=== PATIENT | female | born 1955 | race African-American/Black ===

== ENCOUNTER 2021-04-14 04:25 | Day surgery (SDC) | payer OTHER ==
[2021-04-08 15:12] VITALS: BMI 37.8
[2021-04-14 08:33] LABS: HEMATOCRIT 26.4 % (32.4-45.2); HEMOGLOBIN 8.6 GM/dL (10.7-15.3); MCH 26.3 pg (25.7-33.7); MCHC 32.8 g/dl (32.0-36.0); MEAN CELL VOLUME 80.3 fl (80-96); MEAN PLT VOLUME 7.8 fl (7.5-11.1); PLATELET COUNT 235 10^3/uL (134-434); RBC 3.28 M/mm3 (3.60-5.2); RDW 20.1 % (11.6-15.6); WHITE BLOOD COUNT 8.4 K/mm3 (4.0-10.0)
[2021-04-14] MEDS ORDERED: METOPROLOL TARTRATE 25 MG TABLET (FP) PO ONE (09:15)
[2021-04-14] MEDS ORDERED: BUPIVACAINE HCL/PF 0.5% (5MG/ML) 10 ML VIAL ONE (09:24)
[2021-04-14] MEDS ORDERED: ONDANSETRON 4 MG/2 ML VIAL IVPUSH PRN (10:34)
[2021-04-14] MEDS ORDERED: oxyCODONE HCL 5 MG TABLET PO PRN (10:34)
[2021-04-14] MEDS ORDERED: LACTATED RINGERS SOLUTION 1,000 ML IV SCH (10:45)
[2021-04-14] MEDS ORDERED: ROCURONIUM BROMIDE 50 MG/5 ML SYRINGE ONE ×2 (10:49)
[2021-04-14] MEDS ORDERED: PROPOFOL 20 ML ONE ×2 (10:49→12:08)
[2021-04-14] MEDS ORDERED: MIDAZOLAM HCL 2 MG/2 ML SINGLE DOSE VIAL ONE (10:50)
[2021-04-14] MEDS ORDERED: ceFAZolin SODIUM 1 GM VIAL IVPB ONE (11:00)
[2021-04-14] MEDS ORDERED: BUPIVACAINE HCL/PF 0.5% (5 MG/ML) 30 ML VIAL IJ ONE (11:19)
[2021-04-14] MEDS ORDERED: HEPARIN NA (PORCINE) PF 1,000 UNITS/ML - 2ML VIAL IVPB ONE (11:57)
[2021-04-14] MEDS ORDERED: NEOSTIGMINE METHYLSULFATE 0.5 MG/ML - 10 ML MDV ONE (12:04)
[2021-04-14] MEDS ORDERED: LABETALOL HCL 5 MG/1 ML (100MG/20 ML VIAL) IVPUSH ONE (13:10)
[2021-04-14] MEDS ORDERED: oxyCODONE HCL 5 MG TABLET PO ONE (15:00)
[2021-04-14] MEDS ORDERED: oxyCODONE HCL 5 MG TABLET ONE (15:01)
[2021-04-14 15:09] VITALS: PULSE 85
[2021-04-14 17:41] VITALS: BP 169/69; TEMP 97.1
== END 2021-04-14 17:30 | disposition home or self-care (01) ==
LOC: JASU-SURG 04:25
PROVIDERS: ATTEND Surgery
PROC: 0WHG33Z Insertion of Infusion Device into Peritoneal Cavity, Percutaneous Approach (ICD-10-PCS; principal; 2021-04-14 10:00)
PROC: 0WUF0JZ Supplement Abdominal Wall with Synthetic Substitute, Open Approach (ICD-10-PCS; 2021-04-14 10:00)
DX: I12.0 Hypertensive chronic kidney disease with stage 5 chronic kidney disease or end stage renal disease (principal); E11.22 Type 2 diabetes mellitus with diabetic chronic kidney disease; N18.6 End stage renal disease; Z79.4 Long term (current) use of insulin; K42.9 Umbilical hernia without obstruction or gangrene
CPT/HCPCS: 36415; 82962; 84132; 85027; 94760; J1644